=== PATIENT | male | born 1985 | race Two or more races ===

== ENCOUNTER 2016-11-01 06:19 | Emergency (ER) | payer SELFPAY ==
[~2016-11-01] VITALS: Ht 177.8 cm; Wt 72.6 kg
--- NOTE | 2016-11-01 06:25 | NUR ---
PT CINTHIA RA AND [employer] FOR BIZARRE BEHAVIOR. PT AO TO NAME. RR EVEN AND UNLABORED. NO SOB NOTED. NAD NOTED. NO NVD AT THIS TIME. PUPILS SLIGHTLY PIN POINTED. PT GOWNED AND PLACED ON MONITOR WAITING MD FOR EVAL.
[2016-11-01] MEDS ORDERED: IV NS 0.9% 1,000 ML BAG IV ONE (06:30)
[2016-11-01] MEDS ORDERED: IV NS 0.9% 1,000 ML ONE (06:38)
[2016-11-01] MEDS ORDERED: IV SET PRIMARY 1 EA INFUS.SET MC ONE (06:38)
[2016-11-01 06:40] LABS: BASOPHILS # (AUTO) 0.1 /CMM (0.0-0.2); BASOPHILS % (AUTO) 0.9 % (0.0-2.0); EOSINOPHILS % (AUTO) 0.2 % (0.0-6.0); HEMATOCRIT 46 % (39-51); HEMOGLOBIN 15.7 g/dL (13.5-17.5); LYMPHOCYTES # (AUTO) 1.4 /CMM (0.8-4.8); LYMPHOCYTES % (AUTO) 23.3 % (20.0-44.0); MEAN CORPUSCULAR HEMOGLOBIN 31 PG (26.0-33.0); MEAN CORPUSCULAR HGB CONC 34 g/dl (31.0-36.0); MEAN CORPUSCULAR VOLUME 92 fL (80-96); MONOCYTES # (AUTO) 0.4 /CMM (0.1-1.30); MONOCYTES % (AUTO) 6.7 % (2.0-12.0); NEUTROPHILS # (AUTO) 4.3 /CMM (1.8-8.9); NEUTROPHILS % (AUTO) 68.9 % (43.0-81.0); PLATELET COUNT (AUTO) 223 /CMM (150-450); RDW COEFFICIENT OF VARIATION 13.7 (11.5-15.0); RED BLOOD CELL COUNT(AUTO) 5.04 MIL/uL (4.5-6.0); WHITE BLOOD COUNT (AUTO) 6.2 K/uL (4.3-11.0)
[2016-11-01 06:49] LABS: CALCIUM, SERUM 9.9 mg/dL (8.5-10.1); CARBON DIOXIDE 21 mmol/L (21-32); CHLORIDE 105 mmol/L (98-107); CREATININE 1.2 mg/dL (0.6-1.3); GFR 71 mL/min (>60); GLUCOSE 106 mg/dL (74-106); POTASSIUM 3.1 mmol/L (3.5-5.1); SODIUM SERUM 141 mmol/L (136-145); UREA NITROGEN, BLOOD 19 mg/dL (7-18)
[2016-11-01 06:54] LABS: ALANINE AMINOTRANSFERASE 34 U/L (12-78); ALBUMIN 4.5 g/dL (3.4-5.0); ALCOHOL, BLOOD < 3 mg/dL (0-0); ALKALINE PHOSPHATASE 80 U/L (46-116); ASPARTATE AMINOTRANSFERASE 22 U/L (15-37); BILIRUBIN,DIRECT 0.1 mg/dL (0.0-0.2); BILIRUBIN,TOTAL 0.4 mg/dL (0.2-1.0); TOTAL PROTEIN, SERUM 7.6 g/dL (6.4-8.2)
--- NOTE | 2016-11-01 07:05 | NUR ---
URINE COLLECTED. CALLED LAB FOR RADIOLOGY PRACTITIONER ASSISTANT.
--- NOTE | 2016-11-01 07:19 | NUR ---
REPORT GIVEN TO KISHORE VILLAVICENCIO FOR [facility]. PT TO CT.
--- NOTE | 2016-11-01 07:26 | NUR ---
PT RETURNED FROM CT.
[2016-11-01 07:32] LABS: PHENCYCLIDINE SCREEN,URINE NEGATIVE (NEGATIVE)
[2016-11-01 07:33] LABS: CANNABINOID, URINE POSITIVE (NEGATIVE)
--- NOTE | 2016-11-01 09:45 | NUR ---
[facility] LCSW CALLED BACK, ETA ~ 2HR
[2016-11-01] MEDS ORDERED: LORAZEPAM INJ 2 MG/ML VIAL ONE (12:41)
[2016-11-01] MEDS ORDERED: LORAZEPAM INJ 2 MG/ML VIAL IV ONE (13:00)
--- NOTE | 2016-11-01 15:03 | NUR ---
CALLED FOR FOOD TRAY
--- NOTE | 2016-11-01 18:00 | NUR ---
CALLED [facility] FOR PSYCH EVAL, ETA 1 HOUR
--- NOTE | 2016-11-01 19:22 | NUR ---
RECEIVED REPORT FROM KISHORE VILLAVICENCIO.
--- NOTE | 2016-11-01 21:30 | NUR ---
pt trasnfered to bed 14.
--- NOTE | 2016-11-01 22:31 | NUR ---
[facility] CALLED, STATES PT IS NOT READY TO BE EVALUATED.
[2016-11-02] MEDS ORDERED: OLANZAPINE 5 MG/TAB.RAPDIS ONE (01:47)
[2016-11-02] MEDS ORDERED: OLANZAPINE 5 MG TABLET PO ONE (02:00)
[2016-11-02] MEDS ORDERED: LORAZEPAM INJ 2 MG/ML VIAL ONE (02:30)
--- NOTE | 2016-11-02 02:30 | NUR ---
LUANN RN AT BEDSIDE FOR EVAL. PT PLACED ON 5150 HOLD FOR DTS
--- NOTE | 2016-11-02 02:35 | NUR ---
PT MEDICATED ORDERED.
[2016-11-02] MEDS ORDERED: LORAZEPAM INJ 2 MG/ML VIAL IM ONE (03:00)
--- NOTE | 2016-11-02 04:26 | NUR ---
PT SLEEPING IN [place]. NO SIGNS OF DISTRESS NOTED. PT VITAL SIGNS STABLE. BREATHS EQUAL AND UNLABORED. WILL CONT TO MONITOR PT.
--- NOTE | 2016-11-02 10:00 | NUR ---
ASLEEP, EASILY AROUSABLE, 1:1 SITTER AT BEDSIDE
--- NOTE | 2016-11-02 14:00 | NUR ---
WAITING FOR [facility] TO ACCEPT, NONE AT THIS TIME
--- NOTE | 2016-11-02 18:11 | NUR ---
ASLEEP, VITAL SIGNS W/IN NORMAL LIMITS, 1:1 SITTER AT BEDSIDE
[2016-11-02] MEDS ORDERED: DIVALPROEX SODIUM 500 MG TABLET.DR PO ONE (18:24)
--- NOTE | 2016-11-02 18:39 | NUR ---
CALLED FOR FOOD TRAY
[2016-11-02] MEDS: QUETIAPINE FUMARATE 100 MG TABLET PO SCH (19:00)
[2016-11-02] MEDS: DIVALPROEX SODIUM 500 MG TABLET.DR PO SCH (19:00)
--- NOTE | 2016-11-02 19:00 | NUR ---
PT RESTING IN ER BED, NAD NOTED, SKIN WARM AND DRY, RR EVEN AND UNLABORED. SOH SITTER AT BED SIDE, WILL CONTINUE TO MONITOR
--- NOTE | 2016-11-03 00:16 | NUR ---
[facility] [employer] RELIEVED SOH SITTER FOR BREAK
--- NOTE | 2016-11-03 00:57 | NUR ---
patient resting in er bed, nad noted, will continue to monitor monitor
--- NOTE | 2016-11-03 03:30 | NUR ---
patient resting in er bed, nad noted, will continue to monitor monitor. soh sitter at bed side
[2016-11-03 05:11] VITALS: BP 108/48
--- NOTE | 2016-11-03 06:49 | NUR ---
patient resting in er bed, nad noted, will continue to monitor monitor
[2016-11-03] MEDS ORDERED: DIVALPROEX SODIUM 500 MG TABLET.DR PO ONE (08:44)
[2016-11-03] MEDS: QUETIAPINE FUMARATE 100 MG TABLET PO SCH (09:30)
[2016-11-03] MEDS: DIVALPROEX SODIUM 500 MG TABLET.DR PO SCH ×2 (09:30→12:52)
[2016-11-03] MEDS ORDERED: QUETIAPINE FUMARATE 100 MG TABLET PO SCH (17:00)
== END 2016-11-03 12:54 | disposition home or self-care (01) ==
LOC: ER 06:21
DX: F23 Brief psychotic disorder (principal); R41.82 Altered mental status, unspecified; T50.905A Adverse effect of unspecified drugs, medicaments and biological substances, initial encounter; Y92.89 Other specified places as the place of occurrence of the external cause; Y93.89 Activity, other specified; Y99.8 Other external cause status
CPT/HCPCS: 36415; 70450; 80048; 80076; 80305; 85025; 93005; 96361; 96372; 96374; 99285; A4606; G0480; J2060 ×2; J7030; Z7610

== ENCOUNTER 2016-11-10 15:44 | Emergency (ER) | payer SELFPAY ==
[~2016-11-10] VITALS: Ht 172.7 cm; Wt 65.8 kg
--- NOTE | 2016-11-10 16:15 | NUR ---
PT BIB SELF C/O MILD GENERALIZED ABD PAIN WITHOUT N/V/D X "A FEW DAYS". PT ALSO SEEKS DRUG DETOX TREATMENT. RESP EVEN UNLABORED. SKIN WARM NONDIAPHORETIC. IN ER BED 12.
[2016-11-10 17:08] LABS: BASOPHILS # (AUTO) 0.1 /CMM (0.0-0.2); BASOPHILS % (AUTO) 0.9 % (0.0-2.0); EOSINOPHILS # (AUTO) 0.1 /CMM (0.0-0.7); EOSINOPHILS % (AUTO) 1.1 % (0.0-6.0); HEMATOCRIT 44 % (39-51); HEMOGLOBIN 14.8 g/dL (13.5-17.5); LYMPHOCYTES # (AUTO) 2.1 /CMM (0.8-4.8); LYMPHOCYTES % (AUTO) 29.5 % (20.0-44.0); MEAN CORPUSCULAR HEMOGLOBIN 31 PG (26.0-33.0); MEAN CORPUSCULAR HGB CONC 34 g/dl (31.0-36.0); MEAN CORPUSCULAR VOLUME 92 fL (80-96); MONOCYTES # (AUTO) 0.5 /CMM (0.1-1.30); MONOCYTES % (AUTO) 7.1 % (2.0-12.0); NEUTROPHILS # (AUTO) 4.2 /CMM (1.8-8.9); NEUTROPHILS % (AUTO) 61.4 % (43.0-81.0); PLATELET COUNT (AUTO) 193 /CMM (150-450); RDW COEFFICIENT OF VARIATION 12.8 (11.5-15.0); RED BLOOD CELL COUNT(AUTO) 4.78 MIL/uL (4.5-6.0)
[2016-11-10 17:31] LABS: CALCIUM, SERUM 8.7 mg/dL (8.5-10.1); CREATININE 0.9 mg/dL (0.6-1.3); POTASSIUM 3.7 mmol/L (3.5-5.1)
[2016-11-10 17:43] LABS: BILIRUBIN,DIRECT 0.1 mg/dL (0.0-0.2); BILIRUBIN,TOTAL 0.5 mg/dL (0.2-1.0); TOTAL PROTEIN, SERUM 6.7 g/dL (6.4-8.2)
--- NOTE | 2016-11-10 18:12 | NUR ---
Patient discharged to home in stable condition. Written and verbal after care instructions given. Patient verbalizes understanding of instruction. AMBULATORY WITH STEADY GAIT. PROVIDED WITH INFORMATION FOR DETOX CENTERS.
[2016-11-10 18:15] VITALS: BP 127/96
== END 2016-11-10 18:17 | disposition home or self-care (01) ==
LOC: ER 15:45
DX: R10.9 Unspecified abdominal pain (principal); F31.9 Bipolar disorder, unspecified
CPT/HCPCS: 36415; 80048; 80076; 83690; 85025; 99284; A4606; Z7610